=== PATIENT | female | born 1985 | race Caucasian/White ===

== ENCOUNTER 2022-08-31 16:32 | Emergency (ER) | payer MEDICAID ==
[~2022-08-31] VITALS: Ht 167.6 cm; Wt 127.0 kg
--- NOTE | 2022-08-31 17:25 | NUR ---
Dr Virgen at the bedside for MSE.
[2022-08-31] MEDS ORDERED: ONDANSETRON 4 MG/2 ML VIAL IV ONE (17:30)
[2022-08-31] MEDS ORDERED: MORPHINE SULFATE 2 MG/1 ML DISP.SYRIN IV ONE (17:30)
[2022-08-31] MEDS ORDERED: IV NORMAL SALINE 1000 ML BAG IV ONE (17:30)
[2022-08-31] MEDS ORDERED: FAMOTIDINE. 20 MG/2 ML VIAL IV ONE ×2 (17:30→17:35)
[2022-08-31] MEDS ORDERED: ONDANSETRON 4 MG/2 ML VIAL ONE (17:35)
[2022-08-31] MEDS ORDERED: MORPHINE SULFATE 4 MG/1 ML DISP.SYRIN ONE (17:35)
[2022-08-31 17:53] LABS: HEMATOCRIT 27.2 % (31.2-41.9); MEAN CORPUSCULAR HEMOGLOBIN 23.1 uug (24.7-32.8); MEAN CORPUSCULAR VOLUME 71.1 fL (75.5-95.3); PLATELET COUNT (AUTO) 328 K/uL (179-408)
[2022-08-31 17:54] LABS: BILIRUBIN,DIRECT 0.2 mg/dL (0.0-0.2); BILIRUBIN,TOTAL 0.7 mg/dL (0.2-1.0); CREATININE 0.8 mg/dL (0.6-1.3); POTASSIUM 3.5 mmol/L (3.5-5.1); TOTAL PROTEIN, SERUM 7.1 g/dL (6.4-8.2)
[2022-08-31 17:55] LABS: *BILIRUBIN,URIN 1+ (NEGATIVE); *BLOOD, URINE NEGATIVE (NEGATIVE); *CLARITY,URINE CLEAR (CLEAR); *COLOR,URINE YELLOW (YELLOW); *KETONES,URINE TRACE (NEGATIVE); LEUKOCYTE ESTERASE ,URINE TRACE (NEGATIVE); NITRITE, URINE NEGATIVE (NEGATIVE); PH,URINE 6.5 (5.0-8.0); UGLUCOSE NEGATIVE (NEGATIVE)
[2022-08-31 17:57] LABS: *URINE HCG, QUAL NEG (NEGATIVE)
--- NOTE | 2022-08-31 18:48 | NUR ---
PT back from CT scan.
--- NOTE | 2022-08-31 18:48 | NUR ---
Pt resting in bed, talking on the phone. Denies pain, and nausea.
--- NOTE | 2022-08-31 18:55 | NUR ---
Received report from MARJORIE Mtz.
--- NOTE | 2022-08-31 19:00 | NUR ---
Patient is sleeping. NAD noted.
[2022-08-31] MEDS ORDERED: AMOX-430 PO (20:14)
[2022-08-31] MEDS ORDERED: ONDA4TAB11 PO (20:14)
[2022-08-31] MEDS ORDERED: AMOXICILLIN-CLAVUL 875-125MG TABLET PO ONE (20:15)
[2022-08-31] MEDS ORDERED: AMOXICILLIN-CLAVUL 875-125MG TABLET ONE (20:22)
[2022-08-31] MEDS ORDERED: METO-544 PO (20:30)
--- NOTE | 2022-08-31 20:38 | NUR ---
Patient discharged to home in stable condition. A/O x4. NAD noted. Ambulatory with steady gait. All belongings with patient. Written and verbal after care instructions given. Patient verbalizes understanding of instructions. Stressed follow up or return to ER for worsening s/s.
[2022-08-31 20:39] VITALS: BP 130/84
--- NOTE | 2022-08-31 21:03 | NUR ---
Patient provided with a tap card. Patient's way of transportation is not answering the phone.
[2022-08-31 23:08] LABS: RBC,URINE NONE SEEN /HPF (0-3)
[2022-08-31 23:09] LABS: BACTERIA,URINE NONE SEEN /HPF (NONE SEEN); SQUAMOUS EPITHELIAL CELL,UR FEW /HPF (NONE SEEN); URINE AMORPHOUS URATE MANY /HPF; WBC,URINE 0-3 /HPF (0-3)
== END 2022-08-31 20:37 | disposition home or self-care (01) ==
LOC: ER 16:34
DX: K57.32 Diverticulitis of large intestine without perforation or abscess without bleeding (principal); R11.2 Nausea with vomiting, unspecified; E66.9 Obesity, unspecified; Z68.42 Body mass index [BMI] 45.0-49.9, adult; Z87.19 Personal history of other diseases of the digestive system
CPT/HCPCS: 99284; 74176; 96374; 96375; 96361; 80076; 80048; 81001; 84703; 83690; 85025; 36415; J3490; J2405; J2270; J7040; A4663

== ENCOUNTER 2022-10-22 17:55 | Emergency (ER) | payer MEDICAID ==
[~2022-10-22] VITALS: Ht 157.5 cm; Wt 113.4 kg
[~2022-10-22 17:55] MED LIST: AMOX-430 PO; METO-544 PO
--- NOTE | 2022-10-22 18:00 | NUR ---
BIB [facility] from home with c/o constipation and abd pain. Pt to room 1A via EMS gurney. Pt states she has not had a good BM in 6 days. States hx of diverticulitis.
[2022-10-22] MEDS ORDERED: PROCHLORPERAZINE EDISYLATE 10 MG/2 ML VIAL ONE (18:44)
[2022-10-22] MEDS ORDERED: HYDROMORPHONE 2 MG/1 ML DISP.SYRIN ONE ×2 (18:45→22:26)
[2022-10-22] MEDS ORDERED: HYDROMORPHONE 1 MG/1 ML DISP.SYRIN IV ONE ×2 (18:45→22:00)
[2022-10-22] MEDS ORDERED: PROCHLORPERAZINE EDISYLATE 10 MG/2 ML VIAL IV ONE (18:45)
[2022-10-22] MEDS ORDERED: IV NORMAL SALINE 1000 ML BAG IV ONE (18:45)
[2022-10-22 18:53] LABS: HEMATOCRIT 30.4 % (31.2-41.9); MEAN CORPUSCULAR HEMOGLOBIN 20.7 uug (24.7-32.8); MEAN CORPUSCULAR VOLUME 64.4 fL (75.5-95.3); PLATELET COUNT (AUTO) 229 K/uL (179-408)
[2022-10-22 19:10] LABS: ALANINE AMINOTRANSFERASE < 6 U/L (14-59); ALKALINE PHOSPHATASE 59 U/L (50-136); ASPARTATE AMINOTRANSFERASE 8 U/L (15-37); BILIRUBIN,DIRECT 0.2 mg/dL (0.0-0.2); BILIRUBIN,TOTAL 0.7 mg/dL (0.2-1.0); CARBON DIOXIDE 26 mmol/L (21-32); CHLORIDE 105 mmol/L (98-107); CREATININE 0.8 mg/dL (0.6-1.3); GLUCOSE 96 mg/dL (74-106); LIPASE 92 U/L (73-393); POTASSIUM 3.7 mmol/L (3.5-5.1); TOTAL PROTEIN, SERUM 7.6 g/dL (6.4-8.2); UREA NITROGEN, BLOOD 9 mg/dL (7-18)
[2022-10-22 20:07] LABS: IRON, SERUM 39 ug/dL (50-175)
[2022-10-22] MEDS ORDERED: IOHEXOL 300MG/ML 100 ML INFUS..BTL ONE (20:08)
[2022-10-22] MEDS ORDERED: SWABABLE VALVE TRANSFER SET EA MC ONE (20:08)
[2022-10-22] MEDS ORDERED: IV NORMAL SALINE 250 ML IV ONE (20:08)
[2022-10-22] MEDS ORDERED: METR500T PO (21:33)
[2022-10-22] MEDS ORDERED: HYDR-3980 PO (21:33)
[2022-10-22] MEDS ORDERED: FLUC200T PO (21:33)
[2022-10-22] MEDS ORDERED: AMOX-430 PO (21:33)
[2022-10-22] MEDS ORDERED: PROC-11 PO (21:33)
[2022-10-22 21:52] LABS: *BILIRUBIN,URIN NEGATIVE (NEGATIVE); *BLOOD, URINE NEGATIVE (NEGATIVE); *CLARITY,URINE CLEAR (CLEAR); *COLOR,URINE YELLOW (YELLOW); *KETONES,URINE TRACE (NEGATIVE); *UROBILINOGEN,URINE 0.2 E.U./dl (NORMAL); LEUKOCYTE ESTERASE ,URINE NEGATIVE (NEGATIVE); NITRITE, URINE NEGATIVE (NEGATIVE); PH,URINE 6.5 (5.0-8.0); UGLUCOSE NEGATIVE (NEGATIVE)
--- NOTE | 2022-10-22 22:45 | NUR ---
ordered voucher for transportation. Taxi will be coming witin 30 mins
--- NOTE | 2022-10-22 23:05 | NUR ---
Patient discharged to home in stable condition. Written and verbal after care instructions given. Patient verbalizes understanding of instructions. Stressed follow up or return to ER for worsening s/s.
[2022-10-22 23:06] VITALS: BP 118/80
== END 2022-10-22 23:06 | disposition home or self-care (01) ==
LOC: ER 17:55
DX: D50.9 Iron deficiency anemia, unspecified (principal); K57.92 Diverticulitis of intestine, part unspecified, without perforation or abscess without bleeding; R11.2 Nausea with vomiting, unspecified; E66.9 Obesity, unspecified; Z68.42 Body mass index [BMI] 45.0-49.9, adult; R94.31 Abnormal electrocardiogram [ECG] [EKG]; Z88.1 Allergy status to other antibiotic agents
CPT/HCPCS: 99285; 74177; 96374; 96361; 96375; 80076; 80048; 81003; 83550; 83690; 83735; 85025; 84702; 36415; 93005; 96376; 83605; Q9967; J0780; J1170 ×2; J7040; A4663